=== PATIENT | male | born 1965 | race Caucasian/White ===

== ENCOUNTER 2017-05-17 13:38 | Inpatient (IN) | payer OTHER, MEDICAID ==
[~2017-05-17] VITALS: Ht 170.2 cm; Wt 81.6 kg
[2017-05-17 13:38] VITALS: BP_SYST 158
--- NOTE | 2017-05-17 13:38 | NUR ---
[facility], Placed in room 02. Placed on satellite project site monitor, blood pressure machine and pulse oximeter. To gown for exam. Side rails up. Report given to TJ Ochoa.
--- NOTE | 2017-05-17 13:38 | NUR ---
Dr. Beyer at bedside for evaluation
--- NOTE | 2017-05-17 13:40 | NUR ---
Recieved Pt in bed 2. Pt c/o right knee pain 10/10 sharp shooting, aching, and radiating to right hip. Pt stated while he was washing his car, he had applied an increase amount of weight bearing on right lower extremity and heard a pop in his right knee. Pt able to wiggle toes, cap refills less than 3 secs, bilateral pedal pulse noted. Decrease ROM of right knee.
[2017-05-17] MEDS ORDERED: ONDANSETRON HCL 4 MG/2 ML VIAL IVP ONE (13:45)
[2017-05-17] MEDS ORDERED: MORPHINE SULFATE 10 MG/ML VIAL IVP ONE (13:45)
[2017-05-17 13:58] LABS: CALCIUM 9.6 mg/dL (8.4-11.0); CREATININE 0.91 mg/dL (0.55-1.30); POTASSIUM 3.4 mmol/L (3.5-5.1)
[2017-05-17 14:02] LABS: PROTHROMBIN TIME 10.8 SECS (9.5-12.5)
[2017-05-17 14:05] LABS: BASOPHILS # (AUTO) 0.1 K/uL (0.0-0.2); BASOPHILS % (AUTO) 0.5 % (0.0-2.0); MONOCYTES % (AUTO) 12.8 % (1.7-9.3)
[2017-05-17 14:12] LABS: EOSINOPHILS # (AUTO) 0.1 K/uL (0.0-0.4); EOSINOPHILS % (AUTO) 0.5 % (0.0-4.0); HEMATOCRIT 43.3 % (36-54); HEMOGLOBIN 14.3 g/dL (14.0-18.0); LYMPHOCYTES % (AUTO) 16.5 % (20.5-51.5); MEAN CORPUSCULAR HEMOGLOBIN 30 pg (27-31); MEAN CORPUSCULAR HGB CONC 33 % (32-36); MEAN CORPUSCULAR VOLUME 92 fL (79.0-98.0); MONOCYTES # (AUTO) 1.5 K/uL (0.0-1.0); NEUTROPHILS # (AUTO) 8.3 K/uL (1.8-7.7); NEUTROPHILS % (AUTO) 69.7 % (40.0-70.0); PLATELET COUNT (AUTO) 276 K/uL (130-430); RED BLOOD CELL COUNT(AUTO) 4.71 MIL/uL (4.2-6.2); RED CELL DISTRIBUTION WIDTH 13.2 % (9.0-15.0)
--- NOTE | 2017-05-17 14:27 | NUR ---
Medicated for pain per MD orders. VSS, tolerated well. Will continue to monitor. Bed in lowest position, side rails up, pt on skirt panel assembler.
--- NOTE | 2017-05-17 15:00 | NUR ---
[facility] called for Dr. Collado, he will follow up with pt on the floor.
--- NOTE | 2017-05-17 15:10 | NUR ---
Patient will be admitted to care of Dr. Kaminski. Admitted to Med/Surg unit. Will go to room 08/20. Belongings list completed. Summary report printed. Report will be given at bedside.
--- NOTE | 2017-05-17 15:12 | NUR ---
ADMISSION NOTE Received patient from ER via latisha, received report from ER/ RYAN SPENCER. Patient admitted with diagnosis of RIGHT HIP FX. Patient oriented to hospital routine, call light, toileting and safety-patient verbalized understanding.
[2017-05-17 15:21] VITALS: BP_SYST 149
[2017-05-17] MEDS ORDERED: LORazepam 2 MG/ML VIAL IVP PRN (15:45)
[2017-05-17] MEDS ORDERED: cloNIDine HCL 0.1 MG TABLET PO PRN (15:45)
[2017-05-17] MEDS ORDERED: ACETAMINOPHEN 325 MG TABLET PO PRN (15:45)
[2017-05-17] MEDS ORDERED: traMADol HCL HCL 50 MG TABLET (ULTRAM) PO PRN (15:45)
[2017-05-17] MEDS ORDERED: POTASSIUM CHLORIDE 10 MEQ TAB.PRT.SR PO PRN (15:45)
[2017-05-17] MEDS ORDERED: ONDANSETRON HCL 4 MG/2 ML VIAL IVP PRN (15:45)
[2017-05-17] MEDS ORDERED: DOCUSATE SODIUM 100 MG CAPSULE PO PRN (15:45)
[2017-05-17] MEDS ORDERED: MAGNESIUM SULFATE 50 ML IV PRN (15:45)
--- NOTE | 2017-05-17 15:51 | NUR ---
ID consult called: for Dr. Perez, regarding R hip osteomyelitis, ordered by Dr. Kaminski, spoke with Padmini.
--- NOTE | 2017-05-17 16:09 | NUR ---
Ortho consult called: for Dr. Collado, regarding right hip fracture, ordered by Dr. Kaminski, spoke with Roxi.
[2017-05-17] MEDS ORDERED: HYDR25TA4 PO (17:01)
[2017-05-17] MEDS ORDERED: LEVO25TA7 PO (17:02)
[2017-05-17] MEDS ORDERED: ATEN50TA PO (17:02)
[2017-05-17] MEDS ORDERED: GABA-333 PO (17:03)
[2017-05-17] MEDS ORDERED: HYDR-3921 PO (17:06)
[2017-05-17] MEDS ORDERED: MORP30TA PO (17:08)
[2017-05-17 17:11] VITALS: BP_SYST 149
[2017-05-17] MEDS: MORPHINE 2 MG/ML INJ. SYRINGE IVP PRN ×2 (17:27→21:43)
[2017-05-17 20:00] VITALS: BP_SYST 125
--- NOTE | 2017-05-17 20:00 | NUR ---
Initial Note Awake, alert & oriented. C/o pain to right knee rated 6/10. Knee immobilizer in place. No shortness of breath noted. Right ac IV access intact and patent. Instructed on use of call light & to notify staff if in need of assistance. Verbalized understanding. Call light within reach.
[2017-05-17] MEDS: HEPARIN SODIUM,PORCINE 5000 UNITS/ML VIAL SUBCUT SCH (21:41)
--- NOTE | 2017-05-17 21:49 | NUR ---
Medication Due medication given as ordered. Tolerated well.
--- NOTE | 2017-05-17 21:50 | NUR ---
Pain C/o right knee pain rated 9/10 described as ashing, sharp pain. Morphine IV given as ordered. Addendum: 05/18/17 at 0526 by Vinny Johnson RN pain described as aching, sharp pain.
[2017-05-18] VITALS (7 sets, daily range): BP systolic 123–151
--- NOTE | 2017-05-18 00:20 | NUR ---
Rounds Resting quietly, no apparent distress. Watching TV. No c/o pain or discomfort. Call light within reach.
[2017-05-18] MEDS: MORPHINE 2 MG/ML INJ. SYRINGE IVP PRN ×4 (05:21→22:34)
--- NOTE | 2017-05-18 05:26 | NUR ---
Pain C/o right knee pain described as aching, sharp pain rated 9/10. Morphine IV given as ordered.
[2017-05-18 06:47] LABS: CALCIUM 9.1 mg/dL (8.4-11.0); CREATININE 0.77 mg/dL (0.55-1.30); POTASSIUM 3.6 mmol/L (3.5-5.1)
[2017-05-18 06:51] LABS: BASOPHILS # (AUTO) 0.1 K/uL (0.0-0.2); BASOPHILS % (AUTO) 0.7 % (0.0-2.0); EOSINOPHILS # (AUTO) 0.1 K/uL (0.0-0.4); HEMATOCRIT 42.3 % (36-54); HEMOGLOBIN 13.9 g/dL (14.0-18.0); LYMPHOCYTES # (AUTO) 1.7 K/uL (1.0-5.5); LYMPHOCYTES % (AUTO) 18.1 % (20.5-51.5); MEAN CORPUSCULAR HEMOGLOBIN 31 pg (27-31); MEAN CORPUSCULAR HGB CONC 33 % (32-36); MEAN CORPUSCULAR VOLUME 93 fL (79.0-98.0); MONOCYTES # (AUTO) 1.2 K/uL (0.0-1.0); MONOCYTES % (AUTO) 12.7 % (1.7-9.3); NEUTROPHILS # (AUTO) 6.2 K/uL (1.8-7.7); NEUTROPHILS % (AUTO) 67.5 % (40.0-70.0); PLATELET COUNT (AUTO) 250 K/uL (130-430); RED BLOOD CELL COUNT(AUTO) 4.56 MIL/uL (4.2-6.2); WHITE BLOOD COUNT (AUTO) 9.3 K/uL (4.8-10.8)
--- NOTE | 2017-05-18 07:00 | NUR ---
Closing note Resting awake, alert & oriented. No c/o pain or discomfort. Right knee immobilizer in place. Dr. Collado in [place] to see patient. All needs attended to. Call light within reach.
--- NOTE | 2017-05-18 08:00 | NUR ---
OPENING NOTES PT PRESENTED WITH R HIP PAIN. HIS BP IS ELEVATED THOUGH ASYMPTOMATIC AND HE IS COMPLAINING OF PAIN 10/10, SO I WILL ADMINISTER PRN ANALGESICS WELL SCHEDULED ANTIHYPERTENSIVE MEDS KIRAN AND CONTINUE TO MONITOR. KNEE BRACE IN PLACE ON RIGHT LEG. LUNG SOUNDS CLEAR BILATERALLY, BOWEL SOUNDS ACTIVE IN ALL QUADRANTS.
[2017-05-18] MEDS: HYDROCHLOROTHIAZIDE 25 MG TABLET (HCTZ) PO SCH (08:55)
[2017-05-18] MEDS: MORPHINE SULFATE 30 MG Immediate Release TABLET PO SCH ×3 (08:55→20:26)
[2017-05-18] MEDS: ATENOLOL 50 MG TABLET (TENORMIN) PO SCH (08:56)
[2017-05-18] MEDS ORDERED: LEVOTHYROXINE SODIUM 0.025 MG TABLET PO SCH (09:00)
--- NOTE | 2017-05-18 09:00 | NUR ---
0900 SYNTHROID DELAYED [facility] WOULD NOT RELEASE MED TO ME. i CALLED THE PHARMACY AND THEY WILL CREATE A ONE-TIME DOSE TO ADMINISTER TODAY AND WILL CORRECT THE ENTRY FOR FUTURE ADMINISTRATION.
[2017-05-18] MEDS: HEPARIN SODIUM,PORCINE 5000 UNITS/ML VIAL SUBCUT SCH ×2 (09:09→20:28)
--- NOTE | 2017-05-18 09:09 | NUR ---
Nutrition Update Adilson Scale 18 noted. Pt admitted for R hip fracture. Diet: regular BMI: 28.2 kg/m2 RD to follow per nutrition care standards.
--- NOTE | 2017-05-18 10:00 | NUR ---
ROUNDS PT IS SITTING UP IN BED EATING HIS BREAKFAST, HE DID NOT EAT IT EARLIER. HE IS STILL IN PAIN 08/20 BUT I RECENTLY ADMINISTERED HIS PO ANALGESICS SCHEDULED. I WILL CONTINUE TO MONITOR HIS PAIN AND BP
[2017-05-18] MEDS: HYDROcodone/ACETAMIN 7.5-325 MG TAB PO SCH ×3 (10:02→20:25)
[2017-05-18] MEDS: GABAPENTIN 400 MG CAPSULE PO SCH ×3 (10:02→20:25)
[2017-05-18] MEDS ORDERED: LEVOTHYROXINE SODIUM 0.025 MG TABLET PO ONE (11:30)
--- NOTE | 2017-05-18 12:30 | NUR ---
ROUNDS PT IS SITTING UP IN BED WATCHING TV. HE IS STILL IN PAIN 9/10 BUT HE REPORTED HIS PAIN RARELY DROPS BELOW 8/10 EVEN WHEN HOME AND THAT HIS PAIN IS CHRONIC.
--- NOTE | 2017-05-18 14:51 | NUR ---
ROUNDS PT IS SITTING UP IN BED, WATCHING TV. HE IS COMPLAINING OF PAIN 9/10 SO I ADMINISTERED HIS 1500 PAIN MEDS AND WILL CONTINUE TO MONITOR HIS PAIN. CALL LIGHT WITHIN REACH AND BED SET IN LOWEST POSITION.
[2017-05-18] MEDS ORDERED: *CUBICIN 6 MG/KG Q24H/PHARMACY XX PRN (16:30)
--- NOTE | 2017-05-18 17:00 | NUR ---
ROUNDS PT IS RESTING IN BED BUT IS AWAKE. HE STATED HE IS COMFORTABLE AND DOES NOT NEED ASSISTANCE AT THIS TIME. BED IN LOWEST POSITION AND CALL LIGHT IS WITHIN REACH.
[2017-05-18] MEDS: DAPTOmycin 500 MG in NS 50 ML IV SCH (18:37)
--- NOTE | 2017-05-18 19:00 | NUR ---
CLOSING NOTE PT IS SITTING UP IN BED WATCHING TV. HE IS STILL IN PAIN BUT STATES HE SI SATISFIED WITH THE CURRENT PAIN MANAGEMENT PLAN. IV IS PATENT, DRESSING DRY AND INTACT. KNEE BRACE IS IN PLACE ON RIGHT LEG. LUNG SOUNDS CLEAR BILATERALLY, BOWEL SOUNDS ACTIVE IN ALL QUADRANTS.
--- NOTE | 2017-05-18 20:13 | NUR ---
Emptied about 350 ml aston urine from urinal.
--- NOTE | 2017-05-18 20:17 | NUR ---
Initial note A/O x 3, no SOB, no chest pain, c/o pain 9/10 at R knee. Skin warm to touch, IV at R AC, IV patent. Brace on R knee. No edema noted. +2 radial and pedal pulses. Clear lung sounds and active bowel sounds. Call light within reach, bed at lowest position, bed alarm on, will continue to monitor patient.
--- NOTE | 2017-05-18 20:36 | NUR ---
Emptied 375 ml yellow urine from urinal.
--- NOTE | 2017-05-18 22:38 | NUR ---
Rounds Patient c/o R knee 08/20, requested Morphine IVP. Medication given. Will reassess patient. No SOB, no chest pain. Call light within reach, bed at lowest position, bed alarm on, will continue to monitor patient.
--- NOTE | 2017-05-19 00:28 | NUR ---
Rounds Resting in bed, no SOB, no chest pain. Stated pain 9/10 at right knee. Patient stated his pain level always 9/10. Sometimes 8/10 and severe to 10/10. No pain med needed at this time. Call light within reach, bed at lowest position, bed alarm on, will continue to monitor patient.
[2017-05-19] MEDS: ZOLPIDEM TARTRATE 5 MG TABLET PO PRN ×2 (01:13→22:14)
--- NOTE | 2017-05-19 01:15 | NUR ---
Patient not sleeping. Ambien given. Patient stated he was taking Trazodone at home. He will try Kathy madrigal to see if it's working for him. Will continue to monitor patient.
--- NOTE | 2017-05-19 02:12 | NUR ---
Rounds Sleeping in bed, no SOB, no chest pain, no grimacing. Call light within reach, bed at lowest position, bed alarm on, will continue to monitor patient.
--- NOTE | 2017-05-19 02:30 | NUR ---
Bed alarming Patient tried to use urinal. Emptied 300 ml clear yellow urine from urinal. Provided warm blanket per patient request. Call light within reach, bed at lowest position, bed alarm on, will continue to monitor patient.
--- NOTE | 2017-05-19 04:05 | NUR ---
Rounds Patient sleeping in bed, no SOB, no chest pain, no grimacing. Call light within reach, bed at lowest position, bed alarm on, will continue to monitor patient.
[2017-05-19 04:11] VITALS: BP_SYST 133
[2017-05-19] MEDS: LEVOTHYROXINE SODIUM 0.025 MG TABLET PO SCH (06:10)
[2017-05-19] MEDS: MORPHINE 2 MG/ML INJ. SYRINGE IVP PRN ×3 (06:16→20:18)
--- NOTE | 2017-05-19 06:21 | NUR ---
Rounds Emptied 300 ml clear yellow urine from urinal. Patient c/o R knee pain 10/. Morphine IVP given. Call light within reach, bed at lowest position, bed alarm on, will continue to monitor patient.
[2017-05-19 06:39] LABS: BASOPHILS % (AUTO) 0.4 % (0.0-2.0); EOSINOPHILS # (AUTO) 0.1 K/uL (0.0-0.4); EOSINOPHILS % (AUTO) 0.8 % (0.0-4.0); HEMATOCRIT 44.4 % (36-54); HEMOGLOBIN 14.5 g/dL (14.0-18.0); LYMPHOCYTES # (AUTO) 2.1 K/uL (1.0-5.5); LYMPHOCYTES % (AUTO) 21.5 % (20.5-51.5); MEAN CORPUSCULAR HEMOGLOBIN 30 pg (27-31); MEAN CORPUSCULAR HGB CONC 33 % (32-36); MEAN CORPUSCULAR VOLUME 92 fL (79.0-98.0); MONOCYTES # (AUTO) 1.4 K/uL (0.0-1.0); MONOCYTES % (AUTO) 14.4 % (1.7-9.3); NEUTROPHILS # (AUTO) 6.2 K/uL (1.8-7.7); NEUTROPHILS % (AUTO) 62.9 % (40.0-70.0); PLATELET COUNT (AUTO) 296 K/uL (130-430); RED BLOOD CELL COUNT(AUTO) 4.81 MIL/uL (4.2-6.2); WHITE BLOOD COUNT (AUTO) 9.8 K/uL (4.8-10.8)
--- NOTE | 2017-05-19 06:44 | NUR ---
Closing note Awake/resting in bed, no SOB, no chest pain, stated pain 9/10 after Morphine IVP given. Call light within reach, bed at lowest position, bed alarm on, will give report to incoming nurse.
[2017-05-19 06:46] LABS: CALCIUM 9.2 mg/dL (8.4-11.0); CREATININE 0.81 mg/dL (0.55-1.30); POTASSIUM 3.4 mmol/L (3.5-5.1)
--- NOTE | 2017-05-19 07:41 | NUR ---
initial notes: patient on bed resting. stable. discussed plan of care. safety measures in placed. call light within reach.
[2017-05-19 08:00] VITALS: BP_SYST 136
[2017-05-19] MEDS: HYDROcodone/ACETAMIN 7.5-325 MG TAB PO SCH ×3 (09:12→22:16)
[2017-05-19] MEDS: ATENOLOL 50 MG TABLET (TENORMIN) PO SCH (09:13)
[2017-05-19] MEDS: MORPHINE SULFATE 30 MG Immediate Release TABLET PO SCH ×3 (09:14→22:15)
[2017-05-19] MEDS: HYDROCHLOROTHIAZIDE 25 MG TABLET (HCTZ) PO SCH (09:14)
[2017-05-19] MEDS: HEPARIN SODIUM,PORCINE 5000 UNITS/ML VIAL SUBCUT SCH ×2 (09:18→22:13)
[2017-05-19] MEDS: GABAPENTIN 400 MG CAPSULE PO SCH ×3 (09:20→22:16)
--- NOTE | 2017-05-19 09:30 | NUR ---
rounds: patient assisted to toilet with 2 assist. no distress noted.
[2017-05-19 12:05] VITALS: BP_SYST 138
--- NOTE | 2017-05-19 15:28 | NUR ---
rounds: patient resting on bed. schedule pain med given. no distress noted.
--- NOTE | 2017-05-19 15:55 | NUR ---
Fever: temp. 100.6. Tyleno 350mg given. Continue to monitor.
[2017-05-19 16:04] VITALS: BP_SYST 110
--- NOTE | 2017-05-19 16:56 | NUR ---
rounds: patient on bed resting. no distress noted.
[2017-05-19] MEDS: DAPTOmycin 500 MG in NS 50 ML IV SCH (18:28)
--- NOTE | 2017-05-19 18:32 | NUR ---
closing notes: patient on bed resting on bed, watching t.v. stable. needs attended. safety measures in placed. call light within reach.
--- NOTE | 2017-05-19 19:15 | NUR ---
OPENING NOTES RECEIVED REPORT AT BEDSIDE, PATIENT IS AOX4. RESPIRATIONS ARE EVEN AND UNLABORED. LUNGS ARE CLEAR BILATERAL, ABDOMEN SOFT. KNEE BRACE IN PLACE. IV IS INFILTRATED, IV ANTIBIOTICS STOPPED. PATIENT REPORT PAIN 9/10 CHRONIC. AFEBRILE. FALL PRECAUTIONS IN PLACE. CALL LIGHT WITHIN REACH. WILL CONTINUE TO MONITOR.
[2017-05-19 19:45] VITALS: BP_SYST 166
--- NOTE | 2017-05-19 20:05 | NUR ---
PAIN 10/10 PAIN IN KNEE AN RADIATES TO INSIDE OF THIGH AND CALF. WILL START A NEW IV AND MEDICATE WITH PRN.
--- NOTE | 2017-05-19 20:16 | NUR ---
IV PLACEMENT: # 20 gauge angiocath placed to LEFT FOREARM. Use of asceptic technique. 1 ATTEMPT. Opsite placed over site. Blood return noted. Flushed with 10 cc of normal saline. No evidence of infiltration noted. Patient tolerated WELL.
--- NOTE | 2017-05-19 22:09 | NUR ---
PAIN REPORTS PAIN 07/21. Addendum: 05/19/17 at 2210 by Tiffanie Najera RN PAIN REPORTS PAIN 07/21, WILL MEDICATE WITH SCHEDULED PAIN MEDICATIONS AND REASSESS.
--- NOTE | 2017-05-20 | NUR ---
RN ROUNDS PATIENT IS SLEEPING COMFORTABLY. NO S/S OF ACUTE DISTRESS NOTED. VISIBLE RISE AND FALL OF CHEST NOTED. AUDIBLE SNORING. FALL PRECAUTIONS IN PLACE. CALL LIGHT WITHIN REACH. WILL CONTINUE TO MONITOR.
[2017-05-20 00:14] VITALS: BP_SYST 143
--- NOTE | 2017-05-20 01:49 | NUR ---
RN ROUNDS PATIENT IS SLEEPING COMFORTABLY. NO S/S OF ACUTE DISTRESS NOTED. VISIBLE RISE AND FALL OF CHEST NOTED. FALL PRECAUTIONS IN PLACE. CALL LIGHT WITHIN REACH. WILL CONTINUE TO MONITOR.
[2017-05-20] MEDS: MORPHINE 2 MG/ML INJ. SYRINGE IVP PRN ×3 (03:20→11:36)
--- NOTE | 2017-05-20 03:45 | NUR ---
RN ROUNDS PATIENT IS SLEEPING, NO CHANGE IN CONDITION.
[2017-05-20 04:23] VITALS: BP_SYST 125
--- NOTE | 2017-05-20 06:00 | NUR ---
PAIN PATIENT IS STATING PAIN 9/10 IN RIGHT KNEE, WILL ADMINISTER PRN PAIN MEDICATION.
[2017-05-20] MEDS: LEVOTHYROXINE SODIUM 0.025 MG TABLET PO SCH (06:05)
[2017-05-20 06:38] LABS: CALCIUM 9.3 mg/dL (8.4-11.0); CREATININE 0.73 mg/dL (0.55-1.30); POTASSIUM 4.2 mmol/L (3.5-5.1)
--- NOTE | 2017-05-20 06:40 | NUR ---
CLOSING NOTES PATIENT IS AOX4, AWAKE AND WATCHING TELEVISION. PT REPORTS PAIN 9/10, PAIN MEDICATION WAS ADMINISTERED PRN. RESPIRATIONS ARE EVEN AND UNLABORED. LUNGS ARE CLEAR BILATERAL, ABDOMEN SOFT. KNEE BRACE IN PLACE. PATIENT REPORT PAIN 9/10, PRN MEDICATION WAS ADMINISTERED. PT. IS AFEBRILE. FALL PRECAUTIONS IN PLACE. CALL LIGHT WITHIN REACH. WILL ENDORSE CARE TO DAYSHIFT NURSE.
[2017-05-20 06:53] LABS: BASOPHILS # (AUTO) 0.1 K/uL (0.0-0.2); BASOPHILS % (AUTO) 0.6 % (0.0-2.0); EOSINOPHILS # (AUTO) 0.1 K/uL (0.0-0.4); EOSINOPHILS % (AUTO) 0.8 % (0.0-4.0); HEMATOCRIT 45.4 % (36-54); HEMOGLOBIN 14.9 g/dL (14.0-18.0); LYMPHOCYTES # (AUTO) 2.4 K/uL (1.0-5.5); LYMPHOCYTES % (AUTO) 20.1 % (20.5-51.5); MEAN CORPUSCULAR HEMOGLOBIN 30 pg (27-31); MEAN CORPUSCULAR HGB CONC 33 % (32-36); MEAN CORPUSCULAR VOLUME 92 fL (79.0-98.0); MONOCYTES # (AUTO) 2.4 K/uL (0.0-1.0); MONOCYTES % (AUTO) 19.9 % (1.7-9.3); NEUTROPHILS # (AUTO) 7.2 K/uL (1.8-7.7); NEUTROPHILS % (AUTO) 58.6 % (40.0-70.0); PLATELET COUNT (AUTO) 232 K/uL (130-430); RED BLOOD CELL COUNT(AUTO) 4.94 MIL/uL (4.2-6.2); RED CELL DISTRIBUTION WIDTH 12.9 % (9.0-15.0); WHITE BLOOD COUNT (AUTO) 12.2 K/uL (4.8-10.8)
[2017-05-20 07:44] VITALS: BP_SYST 122
--- NOTE | 2017-05-20 07:44 | NUR ---
INITIAL NOTE Pt in bed, no s/s of distress or sob, pt has no c/o pain at this time. Pt in stable condition. Pt aaox4, verbal, iv catheter patent, no signs of infection or infiltration noted. . Bed at lowest position, call light within reach, will continue to monitor pt for any changes, fall precaution in place. Neurovascular check performed on right leg, pt able to move toes, capillary refill less than 3 seconds, pulse palpable, warm to touch, no paralysis or tingling per pt, sensation present. Pt has a brace on right knee and noted slight swelling on right knee.
[2017-05-20] MEDS: ATENOLOL 50 MG TABLET (TENORMIN) PO SCH (08:22)
[2017-05-20] MEDS: GABAPENTIN 400 MG CAPSULE PO SCH ×2 (08:22→14:12)
[2017-05-20] MEDS: HYDROcodone/ACETAMIN 7.5-325 MG TAB PO SCH ×2 (08:23→14:12)
[2017-05-20] MEDS: MORPHINE SULFATE 30 MG Immediate Release TABLET PO SCH ×2 (08:23→14:12)
[2017-05-20] MEDS: HYDROCHLOROTHIAZIDE 25 MG TABLET (HCTZ) PO SCH (08:23)
[2017-05-20] MEDS: HEPARIN SODIUM,PORCINE 5000 UNITS/ML VIAL SUBCUT SCH (08:26)
--- NOTE | 2017-05-20 10:10 | NUR ---
ROUNDS Pt in bed, no s/s of distress or sob noted, pt has no c/o pain at this time, pt in stable condition, pt resting comfortably, will continue to monitor pt for any changes. Pt talking to daughter at bedside.
--- NOTE | 2017-05-20 10:12 | NUR ---
DISCHARGE PLANNING DC order to [facility]. Faxed recommended facility [facility] [phone]. Will follow up. Addendum: 05/20/17 at 1200 by Isi DAY Spoke with Fuentes in admitting at [facility] patient accepted assigned to room 108A RN to report [phone], bed available anytime. Met with patient along side Brad from [facility] who is agreeable with discharge plan and his discharge to [facility] today. Patient was provided with brochure. Patient stated he would notify his daughter and make her aware. TJ Zambrano made aware. Called [facility] [phone] spoke with Alyssia bronson [facility] transport grape picker between 2:30-3pm. Placed transportation packet in nurses station.
--- NOTE | 2017-05-20 12:20 | NUR ---
ROUNDS Pt in bed, no s/s of distress or sob noted, pt has no c/o pain at this time, pt in stable condition, pt resting comfortably, will continue to monitor pt for any changes. Pt watching tv.
[2017-05-20 12:30] VITALS: BP_SYST 131
[2017-05-20 13:35] VITALS: BP_SYST 128
[2017-05-20 14:18] VITALS: BP_SYST 121
--- NOTE | 2017-05-20 14:55 | NUR ---
PT TRANSFERRED Report given to Joy at [facility]. Transfer packet with Transfer Orders and Medication Reconciliation form given to EMT with report. Exitcare provided. [facility] ID band removed, replaced with ID band with pt's name and . IV catheter in place on left forearm, 20 gauge. All belongings sent with patient. Patient left floor via gurney escorted by EMT in no distress.
[2017-05-20] MEDS ORDERED: HYDR-4100 PO (20:58)
== END 2017-05-20 14:55 | DRG 540 ==
LOC: SED 13:38 → SMU 14:54 → STU 15:07 → SMU 15:10
PROVIDERS: ADMIT General Practice; ATTEND General Practice
DX: M86.68 Other chronic osteomyelitis, other site (principal); R65.10 Systemic inflammatory response syndrome (SIRS) of non-infectious origin without acute organ dysfunction; G89.4 Chronic pain syndrome; M21.951 Unspecified acquired deformity of right thigh; I10 Essential (primary) hypertension; E03.9 Hypothyroidism, unspecified; Z88.5 Allergy status to narcotic agent; Z79.899 Other long term (current) drug therapy; Z91.81 History of falling
CPT/HCPCS: 36415; 73502; 73552; 73560-TC; 80048; 83735-TC; 85025; 85610-TC; 85651-TC; 85730-TC; 87040-TC; 96374; 96375; 99285; J0878; J1644; J2270; J2274; J2405; J7040

== ENCOUNTER 2017-05-20 20:15 | Inpatient (IN) | payer OTHER, MEDICAID ==
[~2017-05-20] VITALS: Ht 170.2 cm; Wt 81.6 kg
[2017-05-20] MEDS: MORPHINE SULFATE 30 MG Immediate Release TABLET PO SCH (14:40)
[2017-05-20 20:15] VITALS: BP_SYST 141
[~2017-05-20 20:15] MED LIST: ATEN50TA PO; GABA-333 PO; HYDR-3921 PO; HYDR25TA4 PO; LEVO25TA7 PO; MORP30TA PO
[2017-05-20] MEDS ORDERED: HYDR-4100 PO (20:58)
[2017-05-20] MEDS ORDERED: DIPHENHYDRAMINE INJ 50 MG/ML VIAL IVP ONE (21:00)
[2017-05-20] MEDS ORDERED: MORPHINE SULFATE 10 MG/ML VIAL IVP ONE (21:00)
[2017-05-20] MEDS ORDERED: MORPHINE SULFATE 10 MG/ML VIAL ONE (21:17)
[2017-05-20 21:26] LABS: BASOPHILS # (AUTO) 0.1 K/uL (0.0-0.2); EOSINOPHILS % (AUTO) 0.2 % (0.0-4.0); MEAN CORPUSCULAR HEMOGLOBIN 30 pg (27-31)
[2017-05-20 21:30] LABS: BASOPHILS % (AUTO) 0.7 % (0.0-2.0); HEMATOCRIT 42.7 % (36-54); HEMOGLOBIN 14.4 g/dL (14.0-18.0); LYMPHOCYTES # (AUTO) 1.9 K/uL (1.0-5.5); LYMPHOCYTES % (AUTO) 13.5 % (20.5-51.5); MEAN CORPUSCULAR HGB CONC 34 % (32-36); MEAN CORPUSCULAR VOLUME 90 fL (79.0-98.0); MONOCYTES % (AUTO) 14.4 % (1.7-9.3); NEUTROPHILS # (AUTO) 10.1 K/uL (1.8-7.7); NEUTROPHILS % (AUTO) 71.2 % (40.0-70.0); PLATELET COUNT (AUTO) 315 K/uL (130-430); RED BLOOD CELL COUNT(AUTO) 4.77 MIL/uL (4.2-6.2); RED CELL DISTRIBUTION WIDTH 12.5 % (9.0-15.0); WHITE BLOOD COUNT (AUTO) 14.1 K/uL (4.8-10.8)
[2017-05-20 21:42] LABS: CALCIUM 9.4 mg/dL (8.4-11.0); CREATININE 0.86 mg/dL (0.55-1.30); POTASSIUM 3.3 mmol/L (3.5-5.1)
[2017-05-20] MEDS ORDERED: DIAZEPAM 10 MG/2 ML DISP.SYRIN IVP ONE (21:45)
[2017-05-20 21:46] LABS: ALBUMIN 3.7 g/dL (3.4-4.8); TOTAL BILIRUBIN 1.3 mg/dL (0.0-1.0); TOTAL PROTEIN, SERUM 8.3 g/dL (6.4-8.3)
[2017-05-20] MEDS ORDERED: DIAZEPAM 10 MG/2 ML DISP.SYRIN ONE (22:09)
[2017-05-20] MEDS ORDERED: MECLIZINE HCL 25 MG TABLET (ANITVERT) ONE (22:09)
[2017-05-20 22:18] LABS: PROTHROMBIN TIME 10.9 SECS (9.5-12.5)
[2017-05-20] MEDS ORDERED: ACETAMINOPHEN 325 MG TABLET PO PRN (22:30)
[2017-05-20] MEDS ORDERED: ONDANSETRON HCL 4 MG/2 ML VIAL IVP PRN ×2 (22:30→22:45)
[2017-05-20] MEDS ORDERED: DOCUSATE SODIUM 100 MG CAPSULE PO PRN (22:45)
[2017-05-20] MEDS ORDERED: ZOLPIDEM TARTRATE 5 MG TABLET PO PRN (22:45)
[2017-05-20] MEDS ORDERED: MAGNESIUM SULFATE 50 ML IV PRN (22:45)
[2017-05-20] MEDS ORDERED: POTASSIUM CHLORIDE 20 MEQ TAB.PRT.SR PO PRN (22:45)
[2017-05-20] MEDS ORDERED: LORazepam 2 MG/ML VIAL (FOR ER USE) IVP PRN (22:45)
[2017-05-20] MEDS ORDERED: cloNIDine HCL 0.1 MG TABLET PO PRN (22:45)
[2017-05-20 23:02] VITALS: BP_SYST 132
[2017-05-20 23:19] VITALS: BP_SYST 135
[2017-05-21] MEDS: GABAPENTIN 400 MG CAPSULE PO SCH ×4 (00:21→21:35)
[2017-05-21] MEDS ORDERED: GABAPENTIN 400 MG CAPSULE PO ONE (01:00)
[2017-05-21 04:33] VITALS: BP_SYST 128
[2017-05-21] MEDS: LEVOTHYROXINE SODIUM 0.025 MG TABLET PO SCH (06:44)
[2017-05-21] MEDS: MORPHINE 4 MG/ML INJ. SYRINGE IVP PRN ×4 (06:49→23:33)
[2017-05-21] MEDS: MORPHINE SULFATE 30 MG Immediate Release TABLET PO SCH ×3 (09:00→21:36)
[2017-05-21] MEDS: HYDROcodone/ACETAMIN 10-325 MG TAB PO SCH ×4 (09:00→21:36)
[2017-05-21] MEDS ORDERED: DOXYCYCLINE HYCLATE 100 MG CAPSULE PO ONE (09:00)
[2017-05-21] MEDS: ATENOLOL 50 MG TABLET (TENORMIN) PO SCH (09:13)
[2017-05-21] MEDS: HYDROCHLOROTHIAZIDE 25 MG TABLET (HCTZ) PO SCH (09:14)
[2017-05-21] MEDS: traMADol HCL HCL 50 MG TABLET (ULTRAM) PO PRN (09:14)
[2017-05-21] MEDS ORDERED: LORazepam 2 MG/ML VIAL IVP PRN (10:26)
[2017-05-21 13:10] VITALS: BP_SYST 131
[2017-05-21 17:57] VITALS: BP_SYST 121
[2017-05-21 20:00] VITALS: BP_SYST 127
[2017-05-21] MEDS: VANCOMYCIN HCL 1,000 MG in NS 250 ML IV SCH (21:37)
[2017-05-22 00:59] VITALS: BP_SYST 126
[2017-05-22] MEDS: MORPHINE 4 MG/ML INJ. SYRINGE IVP PRN ×3 (04:56→13:33)
[2017-05-22 05:05] VITALS: BP_SYST 108
[2017-05-22] MEDS: LEVOTHYROXINE SODIUM 0.025 MG TABLET PO SCH (06:06)
[2017-05-22] MEDS: traMADol HCL HCL 50 MG TABLET (ULTRAM) PO PRN (06:12)
[2017-05-22 06:49] LABS: CREATININE 0.79 mg/dL (0.55-1.30); POTASSIUM 3.4 mmol/L (3.5-5.1)
[2017-05-22 06:54] LABS: HEMATOCRIT 43.8 % (36-54); HEMOGLOBIN 14.8 g/dL (14.0-18.0); MEAN CORPUSCULAR HEMOGLOBIN 31 pg (27-31); MEAN CORPUSCULAR HGB CONC 34 % (32-36); MEAN CORPUSCULAR VOLUME 91 fL (79.0-98.0); PLATELET COUNT (AUTO) 309 K/uL (130-430); RED CELL DISTRIBUTION WIDTH 12.8 % (9.0-15.0); WHITE BLOOD COUNT (AUTO) 11.9 K/uL (4.8-10.8)
[2017-05-22 08:00] VITALS: BP_SYST 116
[2017-05-22] MEDS: MORPHINE SULFATE 30 MG Immediate Release TABLET PO SCH (08:14)
[2017-05-22] MEDS: HYDROCHLOROTHIAZIDE 25 MG TABLET (HCTZ) PO SCH (08:15)
[2017-05-22] MEDS: GABAPENTIN 400 MG CAPSULE PO SCH (08:15)
[2017-05-22] MEDS: HYDROcodone/ACETAMIN 10-325 MG TAB PO SCH (08:16)
[2017-05-22] MEDS: ATENOLOL 50 MG TABLET (TENORMIN) PO SCH (08:17)
[2017-05-22] MEDS: VANCOMYCIN HCL 1,000 MG in NS 250 ML IV SCH (08:25)
[2017-05-22 10:56] LABS: ATYPICAL LYMPHOCYTES % 3 % (0-0); BAND % (MANUAL) 12 % (0-6); EOSINOPHILS % (MANUAL) 0 % (0-7); LYMPHOCYTES % (MANUAL) 17 % (20-46); MONOCYTES % (MANUAL) 8 % (0-11)
[2017-05-22 10:57] LABS: BASOPHILS % (MANUAL) 0 % (0-2)
[2017-05-22 12:54] VITALS: BP_SYST 116
[2017-05-22 13:06] VITALS: BP_SYST 116
== END 2017-05-22 14:00 | DRG 540 ==
LOC: SED 20:15 → SMU 22:22
PROVIDERS: ADMIT General Practice; ATTEND General Practice
DX: M86.651 Other chronic osteomyelitis, right thigh (principal); F11.20 Opioid dependence, uncomplicated; I10 Essential (primary) hypertension; E03.9 Hypothyroidism, unspecified; E87.6 Hypokalemia; G89.4 Chronic pain syndrome; M16.11 Unilateral primary osteoarthritis, right hip; Z96.649 Presence of unspecified artificial hip joint; D72.829 Elevated white blood cell count, unspecified; Z88.6 Allergy status to analgesic agent; Z79.899 Other long term (current) drug therapy
CPT/HCPCS: 36415; 80048; 80053; 83605; 83735-TC; 85007; 85025; 85027; 85610-TC; 87040-TC; 87081; 96374; 96375; 99285; J2270; J2274; J3360; J3370; J7040; J7050; J8597